=== PATIENT | female | born 1950 | race Native Hawaiian/Other Pacific Islander ===

== ENCOUNTER 2018-07-13 15:28 | Emergency (ER) | payer OTHER ==
--- NOTE | 2018-07-13 15:56 | C.PDOC ---
History Of Present Illness 67 y/o female, presents to the ER w/grandson, complaining of left arm and left wrist pain and swelling s/p witnessed injury yesterday morning. Arm pain is worse with movement. Patient states that she was cleaning the blades of a fan when a chair gave out from underneath her and she fell down. Patient admits to head strike but denies LOC. Denies being on blood thinners. Admits to bump to left occipital scalp, that has shown improvement since yesterday morning. She did not take any medications for the pain. Tolerating PO without difficulty, no significant changes in behavior per patient or family. Denies headache, seizure activity, visual changes, neck pain, back pain, hip pain, CP, palpitations, SOB, nausea, vomiting, abdominal pain, weakness, numbness, or parasthesias. Chief Complaint (Nursing): Upper Extremity Problem/Injury History Per: Patient History/Exam Limitations: no limitations Onset/Duration Of Symptoms: Days Current Symptoms Are (Timing): Still Present Severity: Moderate Past Medical History Reviewed: Historical Data, Nursing Documentation, Vital Signs Vital Signs: Last Vital Signs Temp 98.8 F 07/13/18 15:35 Pulse 86 07/13/18 15:35 Resp 17 07/13/18 15:35 BP 182/95 H 07/13/18 15:35 Pulse Ox 99 07/13/18 15:35 - Medical History PMH: No Chronic Diseases Other Surgeries: Hx of surgeries Family History: States: No Known Family Hx - Social History Hx Alcohol Use: No Hx Substance Use: No - Immunization History Hx Tetanus Toxoid Vaccination: No Hx Influenza Vaccination: No Hx Pneumococcal Vaccination: No Review Of Systems Except As Marked, All Systems Reviewed And Found Negative. Constitutional: Negative for: Fever, Chills Eyes: Negative for: Vision Change Cardiovascular: Negative for: Chest Pain Respiratory: Negative for: Shortness of Breath Gastrointestinal: Negative for: Nausea, Vomiting, Abdominal Pain Musculoskeletal: Positive for: Arm Pain (left arm pain), Other (left wrist pain) Neurological: Positive for: Headache. Negative for: Weakness, Numbness Physical Exam - Physical Exam Appears: Well, Non-toxic, No Acute Distress Skin: Warm, Dry, Ecchymosis (left dorsal hand and wrist, left occipital scalp) Head: Normacephalic, Tenderness (over ecchymosis ), No Swelling, No Abrasion, No Laceration, Other (mild bruising to left occipital scalp; no mastoid bruising) Eye(s): bilateral: Normal Inspection, PERRL, EOMI Ear(s): Left: Other (mild bruising to left pinna, no hemotympanum), Right: Normal Nose: Normal Oral Mucosa: Moist Neck: Normal, Normal ROM, Trachea Midline, No Midline Cervical Tenderness, No Paracervical Tenderness, Supple Chest: Symmetrical Cardiovascular: Rhythm Regular Respiratory: Normal Breath Sounds, No Rales, No Rhonchi, No Wheezing Gastrointestinal/Abdominal: Normal Exam, Bowel Sounds (normoactive), Soft, No Tenderness Back: Normal Inspection, No Vertebral Tenderness, No Decreased ROM, No Paraspinal Tenderness Extremity: No Normal ROM (decreased ROM in left wrist secondary to pain), Tenderness (tenderness to dorsal aspect of left distal forearm and wrist), Swelling (dorsal medial left wrist and hand), Other (bruising dorsal surface of left arm from hand to left mid dorsal forearm) Extremity: Right: Atraumatic, Normal Color And Temperature, Normal ROM Pulses: Right Radial: Normal, Left Femoral: Normal Neurological/Psych: Oriented x3, Normal Speech, Normal Cognition, Normal Cranial Nerves, No Cerebellar Signs, Normal Motor, Normal Sensation Gait: Steady Other Neurological Findings: No Facial Palsy, No Tongue Deviation Extremity: Right: No Drift, Left: No Drift, Upper: No Drift, Lower: No Drift ED Course And Treatment O2 Sat by Pulse Oximetry: 99 (RA) Pulse Ox Interpretation: Normal Medical Decision Making Medical Decision Making: Plan: --CT-Head --Tylenol PO --X-Ray-Left Forearm --X-Ray-Left Wrist Patient asymptomatic with elevated BP, states it has been elevated before. Denies headache, vision changes, SOB, dizziness, abdominal pain, back pain, N/V. Admits that she has had elevated BP occasionally in the past but has not been to a doctor in a long time. Likely increased BP secondary to pain, but will provide appropriate instruction and followup. Initial plan and HTN discussed with Kadi Sandoval PA-C who agrees and recommends to educate pt on dangers of HTN and refer for followup, no treatment indicated here in ED. CT-Head FINDINGS: HEMORRHAGE: No intracranial hemorrhage. BRAIN: Normal martin-white matter differentiation and density are appreciated throughout the cerebrum and cerebellum with the brainstem appearing unremarkable as well. There is no mass effect. There is no suspicious extra-axial fluid collection and the midline brain anatomy appears diffusely unremarkable. VENTRICLES: Unremarkable. No hydrocephalus. CALVARIUM: No destructive bony lesion or displaced fracture identified including through the skullbase. There is a large left occipital scalp hematoma identified nevertheless with limited extension into the left parietal scalp. PARANASAL SINUSES: Multifocal inflammatory changes are identified at the bilateral ethmoid air cells diffusely. MASTOID AIR CELLS: Unremarkable as visualized. No inflammatory changes. OTHER FINDINGS: None. IMPRESSION: 1. No acute intracranial findings. 2. No fracture identified throughout the calvarium or skullbase however there is a large left occipital scalp hematoma identified with minimal involvement of the left parietal scalp as well. Discussed results of CT with Kadi Sandoval, who states there is nothing to do for scalp hematoma and that it will resolve on its own. XRay Left Forearm/Wrist: Comminuted, likely articular fracture of distal left radius without angulation Pt reports decreased pain after medication, continues to deny headache, vision changes, nausea, chest pain, back pain. 17:15 's service contacted. Pending call back. 17:57 2nd call to 's service. Pending call back. 18:18 3rd call to 's service. Pending call back. 18:[address] Ibrahim, who provided me with Dr. Diehl's personal cellphone number. 19:[address] Diehl's personal cell phone, no answer. Left a message regarding case. 19:20 Dr. Michelle called asking for patient to be referred to Dr. Delatorre, as he is busy in surgery at [place]. 19:[address] Delatorre, who viewed radiographic images and will see patient in the office on Tuesday for followup. Recommends sugartong splint. Sugartong splint applied by TONIE Sylvester. Left arm remains neurovascularly intact. Plan of care discussed with patient and family, and strict instructions given regarding prescriptions, importance of follow up, and signs to return to Emergency Department, to include headache, vision changes, altered mental status, chest pain, numbness, paresthesias, or any other new/worsening symptoms. Patient and family verbalize understanding of discussion. Patient A&Ox3, ambulating with steady gait, stable for discharge home. Called and advised pt to avoid ibuprofen for pain and to take Percocet as needed. Impression: Left wrist fracture, Elevated BP reading Plan: * Orthopedic followup Tuesday 07/[address] Delatorre * Percocet for pain * Followup with clinic/primary doctor within 2 days for blood pressure check * Return to ER with new/worsening symptoms Disposition - Disposition Referrals: Barry Delatorre MD [Staff Provider] - Disposition: HOME/ ROUTINE Disposition Time: 19:30 Condition: GOOD Additional Instructions: FOLLOWUP WITH DR. 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 - Scribe Statement The provider has reviewed the documentation as recorded by the Johnson Motta Provider Attestation All medical record entries made by the Davidibe were at my direction and personally dictated by me. I have reviewed the chart and agree that the record accurately reflects my personal performance of the history, physical exam, medical decision making, and the department course for this patient. I have also personally directed, reviewed, and agree with the discharge instructions and disposition.
--- NOTE | 2018-07-13 16:51 | CT ---
Date of service: 07/13/2018 PROCEDURE: CT HEAD WITHOUT CONTRAST. HISTORY: fall, headache COMPARISON: None available. TECHNIQUE: Axial computed tomography images were obtained through the head/brain without intravenous contrast. Radiation dose: Total exam DLP = 1155.91 mGy-cm. This CT exam was performed using one or more of the following dose reduction techniques: Automated exposure control, adjustment of the mA and/or kV according to patient size, and/or use of iterative reconstruction technique. FINDINGS: HEMORRHAGE: No intracranial hemorrhage. BRAIN: Normal martin-white matter differentiation and density are appreciated throughout the cerebrum and cerebellum with the brainstem appearing unremarkable as well. There is no mass effect. There is no suspicious extra-axial fluid collection and the midline brain anatomy appears diffusely unremarkable. VENTRICLES: Unremarkable. No hydrocephalus. CALVARIUM: No destructive bony lesion or displaced fracture identified including through the skullbase. There is a large left occipital scalp hematoma identified nevertheless with limited extension into the left parietal scalp. PARANASAL SINUSES: Multifocal inflammatory changes are identified at the bilateral ethmoid air cells diffusely. MASTOID AIR CELLS: Unremarkable as visualized. No inflammatory changes. OTHER FINDINGS: None. IMPRESSION: 1. No acute intracranial findings. 2. No fracture identified throughout the calvarium or skullbase however there is a large left occipital scalp hematoma identified with minimal involvement of the left parietal scalp as well.
[2018-07-13 18:35] VITALS: RESP 18
--- NOTE | 2018-07-13 19:19 | RAD ---
Date of service: 07/13/2018 PROCEDURE: Radiographs of the Left Forearm HISTORY: trauma r/o fracture COMPARISON: None available. TECHNIQUE: Frontal and lateral views obtained. FINDINGS: BONES: A comminuted fracture of the distal left radius identified without angulation though mild impaction and distraction laterally is identified. The fracture is likely articular and this can be confirmed by CT or MRI. No dislocation or subluxation apparent. JOINT SPACES: Unremarkable. OTHER FINDINGS: Moderate local soft tissue identified with the fracture site. IMPRESSION: Comminuted likely articular fracture distal left radius with impaction and limited lateral distraction. Moderate local soft tissue edema identified.
--- NOTE | 2018-07-13 19:20 | RAD ---
Date of service: 07/13/2018 PROCEDURE: Left Wrist Radiographs. HISTORY: trauma r/o fracture COMPARISON: None. FINDINGS: BONES: Comminuted impacted fracture distal left radius with limited dorsal angulation suggesting Colles fracture. Probable ulnar styloid fracture apparent. Fracture may be articular at the radius and follow-up CT or MRI can be utilized for added characterization. JOINTS: No subluxation or dislocation. SOFT TISSUES: Moderate soft tissue edema noted. OTHER FINDINGS: None. IMPRESSION: Comminuted Colles fracture distal left radius with probable small avulsion fracture ulnar styloid as well. Moderate local soft tissue edema noted.
[2018-07-13 20:18] VITALS: BP 179/108; PULSE 78; TEMP 98.8
[2018-07-13 21:21] VITALS: O2SAT 99
== END 2018-07-13 20:18 | disposition home or self-care (01) ==
LOC: C.ER 15:28
DX: S52.532A Colles' fracture of left radius, initial encounter for closed fracture (principal); W07.XXXA Fall from chair, initial encounter